=== PATIENT | female | born 1975 | race Caucasian/White ===

== ENCOUNTER 2020-06-03 19:38 | Emergency (ER) | payer MEDICAID ==
[~2020-06-03] VITALS: Ht 172.7 cm; Wt 81.6 kg
[2020-06-03 19:50] VITALS: BP_SYST 148
[2020-06-03 20:46] VITALS: BP_SYST 148
== END 2020-06-03 20:47 | disposition home or self-care (01) ==
LOC: SED 19:38
DX: H57.89 Other specified disorders of eye and adnexa (principal)
CPT/HCPCS: 99283

== ENCOUNTER 2024-01-25 22:24 | Emergency (ER) | payer MEDICAID ==
[~2024-01-25] VITALS: Ht 172.7 cm; Wt 77.1 kg
[2024-01-25 22:39] VITALS: BP_SYST 146; PULSE 97; RESP 20; TEMP 98.7; O2SAT 98
[2024-01-25] MEDS ORDERED: VIS25 PO (23:10)
[2024-01-25] MEDS ORDERED: METH-776 PO (23:10)
[2024-01-25] MEDS: DEXAMETHASONE SOD PHOSPHATE 10 MG/ML VIAL IM ONE (23:17)
[2024-01-25 23:20] VITALS: BP_SYST 146; PULSE 97; RESP 20; TEMP 98.7; O2SAT 98
== END 2024-01-25 23:20 | disposition home or self-care (01) ==
LOC: SED 22:24
DX: R21 Rash and other nonspecific skin eruption (principal); T50.995A Adverse effect of other drugs, medicaments and biological substances, initial encounter; F17.200 Nicotine dependence, unspecified, uncomplicated; Y92.89 Other specified places as the place of occurrence of the external cause
CPT/HCPCS: 99283; 96372; J1100